=== PATIENT | female | born 1950 | race Caucasian/White ===

== ENCOUNTER 2017-01-27 12:47 | Emergency (ER) | payer OTHER, BC ==
[2017-01-27 13:30] VITALS: PULSE 69
--- NOTE | 2017-01-27 14:11 | UCPHY ---
H & P Time Seen by Provider: 01/27/17 13:30 Patient Type: New HPI/ROS: 66-year-old female presents complaining of nasal drainage, cough, fevers chills for several days. She is visiting from [place]. She denies leg pain leg swelling. Review of systems General positive fevers and chills no weakness HEENT no eye pain no eye discharge. No eye redness, no sore throat Respiratory positive cough, no shortness of breath Cardiac no chest pain, no peripheral edema GI no abdominal pain, no diarrhea, no constipation, no nausea, no vomiting no flank pain, no hematuria, no dysuria Musculoskeletal no myalgias, no joint pain Heme no easy bruising, no easy bleeding Endo no polyuria, no polydipsia Skin no rashes, no pruritus Neuro no syncope, no dizziness, no headaches Psych is no suicidal ideation, no homicidal ideation Past Medical/Surgical History: GERD Social History: Denies excessive alcohol or drug use Smoking Status: Never smoked Physical Exam: 66-year-old female Alert and oriented nontoxic appearance, no acute distress afebrile Atraumatic normocephalic Extraocular muscles intact, anicteric Nares mild yellowish discharge Oropharynx mild erythema no tonsillar swelling no exudate no uvular deviation, tolerating own secretions Neck supple no lymphadenopathy Lungs clear to auscultation bilaterally Heart regular rate and rhythm Abdomen normoactive bowel sounds soft nontender Extremities no cyanosis clubbing or edema Skin no rash Constitutional: Initial Vital Signs Temperature (C) 36.6 C 01/27/17 13:27 Heart Rate 69 01/27/17 13:27 Respiratory Rate 16 01/27/17 13:27 Blood Pressure 139/87 H 01/27/17 13:27 O2 Sat (%) 94 01/27/17 13:27 O2 Delivery Mode Room Air Allergies/Adverse Reactions: No Known Allergies Allergy (Unverified 01/27/17 13:30) Home Medications: Medication Instructions Recorded AZITHROMYCIN [Z-PACK] 250 mg PO DAILY #6 tab 01/27/17 Benzonatate [Tessalon Pearles (RX)] 100 mg PO TID PRN #30 cap 01/27/17 Omeprazole 01/27/17 Medical Decision Making - Diagnostics Imaging: Chest x-ray negative for infiltrate ED Course/Re-evaluation: Patient seen and evaluated for cough fevers chills Differential diagnosis considered URI, bronchitis, influenza, pneumonia, pharyngitis, viral syndrome Influenza negative Chest x-ray negative Impression Bronchitis Plan Bjorn Naik Departure - Departure Disposition: Home, Routine, Self-Care Clinical Impression: Bronchitis Condition: Good Instructions: Acute Bronchitis (ED) Referrals: NONE *PRIMARY CARE P,. [Primary Care Provider] - As per Instructions Prescriptions: AZITHROMYCIN [Z-PACK] 250 mg PO DAILY #6 tab Benzonatate [Tessalon Pearles (RX)] 100 mg PO TID PRN #30 cap PRN Reason: Cough, Moderate - PQRS PQRS Measurement: 134: Depression screening and followup, PRIME MD-PHQ2 (12 years and older) Over the last 2 weeks, how often have you been bothered by any of the following problems? 1. Feeling down, depressed, or hopeless? 2. Little interest or pleasure in doing things? Patient answered no to both 1 and 2 130: Documentation of medications. Reviewed all patient medications, doses, route and frequency. 226: Do you smoke? No. 47: 65 and older: Advanced care planning. Patient designates surrogate decision maker as spouse.. [Patient has advanced directive.] 51: 18 years old and older with diagnosis of COPD, spirometry performance. [Patient has no history of COPD 52: 18 years old and older with COPD and symptoms of COPD or FEV1<60% predicted prescribed a B Agonist. [Spirometry not performed; equipment not available.]
[2017-01-27 14:25] VITALS: BP 132/84; RESP 18; TEMP 98.2; O2SAT 95
== END 2017-01-27 14:25 | disposition home or self-care (01) ==
LOC: CED 12:47
DX: J40 Bronchitis, not specified as acute or chronic (principal)
CPT/HCPCS: 87400-PO; G0463-PO